=== PATIENT | female | born 1935 | race Two or more races ===

== ENCOUNTER 2018-03-28 14:32 | Outpatient (CLI) | payer OTHER | END 2018-03-28 16:09 | disposition home or self-care (01) | LOC: RAD 14:32 | DX: M25.562 Pain in left knee (principal); M23.602 Other spontaneous disruption of unspecified ligament of left knee; M25.561 Pain in right knee; M25.552 Pain in left hip | CPT/HCPCS: 73718 ==

== ENCOUNTER → 2018-06-25 06:23 | Outpatient (CLI) | payer OTHER | END | disposition home or self-care (01) | LOC: LAB 06:23 | DX: N39.0 Urinary tract infection, site not specified (principal); E03.8 Other specified hypothyroidism; E78.4 Other hyperlipidemia; R97.8 Other abnormal tumor markers; E55.9 Vitamin D deficiency, unspecified; I11.9 Hypertensive heart disease without heart failure ==

== ENCOUNTER 2018-08-08 07:36 | Outpatient (CLI) | payer OTHER | END 2018-08-08 07:54 | disposition home or self-care (01) | LOC: LAB 07:36 | DX: E03.4 Atrophy of thyroid (acquired) (principal); E78.2 Mixed hyperlipidemia; I11.9 Hypertensive heart disease without heart failure ==

== ENCOUNTER 2018-09-06 10:44 | Outpatient (CLI) | payer OTHER | END 2018-09-06 10:57 | disposition home or self-care (01) | LOC: RAD 10:44 | DX: I11.9 Hypertensive heart disease without heart failure (principal) ==

== ENCOUNTER → 2018-09-10 06:59 | Outpatient (CLI) | payer OTHER | END | disposition home or self-care (01) | LOC: LAB 06:59 | DX: D50.8 Other iron deficiency anemias (principal); E78.2 Mixed hyperlipidemia; I11.9 Hypertensive heart disease without heart failure ==

== ENCOUNTER 2018-11-29 07:56 | Outpatient (CLI) | payer OTHER | END 2018-11-29 08:12 | disposition home or self-care (01) | LOC: LAB 07:56 | DX: D50.0 Iron deficiency anemia secondary to blood loss (chronic) (principal); I11.9 Hypertensive heart disease without heart failure; E03.8 Other specified hypothyroidism; Z12.11 Encounter for screening for malignant neoplasm of colon; N39.0 Urinary tract infection, site not specified; E55.9 Vitamin D deficiency, unspecified; E78.49 Other hyperlipidemia ==

== ENCOUNTER 2018-12-22 17:12 | Outpatient (CLI) | payer OTHER | END 2018-12-22 17:42 | disposition home or self-care (01) | LOC: RAD 17:12 | DX: I11.9 Hypertensive heart disease without heart failure (principal); J44.9 Chronic obstructive pulmonary disease, unspecified; J01.80 Other acute sinusitis ==

== ENCOUNTER 2019-04-04 07:40 | Outpatient (CLI) | payer OTHER | END 2019-04-04 07:46 | disposition home or self-care (01) | LOC: LAB 07:40 | DX: E03.8 Other specified hypothyroidism (principal); E78.2 Mixed hyperlipidemia; I11.9 Hypertensive heart disease without heart failure; R73.02 Impaired glucose tolerance (oral) ==

== ENCOUNTER 2019-06-11 14:49 | Outpatient (CLI) | payer OTHER | END 2019-06-11 15:23 | disposition home or self-care (01) | LOC: RAD 14:49 | DX: M86.8X8 Other osteomyelitis, other site (principal); M54.5 Low back pain ==